=== PATIENT | male | born 1975 | race African-American/Black ===

== ENCOUNTER 2021-11-29 19:40 | Emergency (ER) | payer OTHER, SELFPAY ==
--- NOTE | ~2021-11-29 | CT_ITS ---
EXAMINATION: CT CHEST WITHOUT CONTRAST CT ABDOMEN AND PELVIS WITHOUT CONTRAST CLINICAL INFORMATION: Retropharyngeal air suspicion of lung trauma . COMPARISON: No pertinent prior studies are available for comparison. TECHNIQUE: Multidetector volumetric imaging was performed from the thoracic inlet through the pubic symphysis. Sagittal and coronal images were reformatted. This CT examination was performed using dose optimization techniques as appropriate, variously including the following: *Automated exposure control *Adjustment of mA and/or kV according to patient size (this includes techniques or standardized protocols for targeted exams where dose is matched to indication/reason for exam; i.e. extremities or head) *Use of iterative reconstruction technique DOSE: 1002 mGy-cm FINDINGS: -CHEST- LUNG: The lungs are clear without focal opacity or nodule. MEDIASTINUM: Gas propagates from the retropharyngeal soft tissues into the mediastinum to the level of the diaphragm and retrocrural soft tissues. There is a questionable small linear defect in the posterior wall of the trachea which may correspond to a tear, best seen on image 215/591 of series 7. Small volume pneumopericardium. Heart is normal in size. No intrathoracic free fluid. No adenopathy. Thyroid gland is unremarkable. PLEURA: No significant effusion. No pleural mass or thickening. CHEST WALL/AXILLA: No axillary adenopathy. Bilateral gynecomastia. -ABDOMEN/PELVIS- LIVER, GALLBLADDER, BILIARY TREE: The liver is normal in size, shape, and attenuation. No focal hepatic lesion or biliary ductal dilatation is present. The gallbladder is unremarkable with no evidence of radiopaque gallstones, gallbladder wall thickening, or obvious pericholecystic inflammatory changes. PANCREAS: Normal; no mass or surrounding fluid. SPLEEN: Normal size. No focal lesion. ADRENAL GLANDS: There is a 1.4 cm left adrenal nodule with attenuation value of -4 Hounsfield units, consistent with a lipid rich adrenal adenoma. No suspicious features. No recommended imaging follow up. Right adrenal gland is normal. KIDNEYS AND URETERS: The kidneys are normal in size, shape, and attenuation. No hydronephrosis, hydroureter, or calculi seen. No perinephric stranding. BLADDER: Unremarkable. GASTROINTESTINAL TRACT: Stomach, small bowel, and colon are normal in caliber. No bowel wall thickening or surrounding inflammatory changes. Appendix is normal. No intraperitoneal free fluid or free air. ABDOMINAL WALL: No significant hernia is appreciated. VASCULATURE: Aorta is normal in size. No significant calcific atherosclerotic disease. LYMPH NODES: No lymphadenopathy. . PELVIC VISCERA: The prostate and seminal vesicles are unremarkable. OSSEUS STRUCTURES: There is mild exaggeration of the thoracic kyphosis as result of mild anterior wedging of multiple lower thoracic vertebral bodies, likely developmental. No acute fractures. There is mild multilevel degenerative spondylosis in the thoracic spine. No rib fractures are identified. The sternum appears intact. Mild multilevel degenerative disc disease is also noted in the lumbar spine with more pronounced focal degenerative facet arthropathy in the lower lumbar spine at L4-L5 and L5-S1. 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 No acute fractures. CT/CT abdomen pelvis wo IV con IMPRESSION: 1. Pneumomediastinum propagates from the cervical soft tissues at the level of the diaphragm with trace associated pneumopericardium. It is most pronounced around the central airway including the trachea and mainstem bronchi. No definitive site of tracheobronchial injury or esophageal injury is identified, though a small focal longitudinal tear of the posterior aspect of the distal trachea is possible. No surrounding fluid collections. No appreciable pneumothorax. 2. Otherwise, no evidence of acute injury in the chest, abdomen, and pelvis.
--- NOTE | ~2021-11-29 | CT_ITS ---
EXAMINATION: CT cervical spine wo IV con, CT head/brain wo IV con, CT facial bones wo IV con INDICATION INFORMATION: Reason for Exam facial trauma COMPARISON: Trauma TECHNIQUE: Separate noncontrast CT examinations of the head, face, and cervical spine were performed. Coronal and sagittal images were created for each examination at the technologist workstation. This CT examination was performed using dose optimization techniques as appropriate, variously including the following: *Automated exposure control *Adjustment of mA and/or kV according to patient size (this includes techniques or standardized protocols for targeted exams where dose is matched to indication/reason for exam; i.e. extremities or head) *Use of iterative reconstruction technique DLP: 1608 mGy-cm FINDINGS: Head: No acute osseous or soft tissue abnormality. The mastoid air cells are clear. There is no evidence of acute intracranial hemorrhage or territorial infarction. No abnormal mass effect or midline shift is seen. Ruiz to white matter differentiation is well preserved. No extra-axial fluid collections are identified. No hydrocephalus. No significant volume loss. There is no abnormal attenuation within the brain parenchyma. Cavum vellum interpositum, a normal variant. Facial Bones: Chronic appearing left maxillofacial deformity, likely reflecting an old zygomaticomaxillary complex fracture as well as fracture of the inferolateral floor of the left orbit. Postsurgical material is noted along the left lateral orbital rim. Age-indeterminate fracture of the anterior left lamina papyracea and age-indeterminate nasal bone deformities. There is left perioribtal soft tissue swelling and mild left proptosis. The left globe appears intact. Minimal haziness of the left intraorbital fat. No retrobulbar hematoma. Scattered paranasal sinus fluid and mucosal thickening. Cervical spine: There is no evidence of acute cervical spine fracture. Vertebral bodies remain normal in height. Straightening of the upper cervical lordosis. Moderate multilevel cervical spondylosis. No prevertebral edema. Visualized portions of the lung apices are unremarkable. The thyroid gland is unremarkable. Soft tissue emphysema is noted in the superior mediastinum extending into the neck predominantly involving the prevertebral soft tissues. CT/CT cervical spine wo IV con IMPRESSION: 1. No acute intracranial abnormality. 2. No cervical spine fracture or traumatic malalignment. 3. Chronic appearing left facial deformity, likely reflecting a prior left zygomaticomaxillary complex fracture as well as fracture of the orbital floor. Age indeterminate fracture of the left anterior lamina papyracea and bilateral nasal bones. Given the presence of left periorbital soft tissue swelling, superimposed acute on chronic fracture would be difficult to exclude. Comparison with prior imaging if available would be helpful. The left medial rectus muscle approximates the left lamina papyracea fracture. Recommend correlation with extraocular movements to exclude entrapment. 4. Emphysema involving the superior mediastinum and neck, predominantly the prevertebral soft tissues. No source of air in the neck is identified. Consider further evaluation with noncontrast CT of the chest. Above impression was discussed with Candy Paris NP on 11/21/2021 at 9:05 PM
[2021-11-29 19:53] VITALS: BP 140/90; BP 142/79; PULSE 71; PULSE 90; RESP 16; TEMP 36.9; O2SAT 9; O2SAT 99; BMI 18.7
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
--- OUTSIDE RECORDS SUMMARY | 2021-11-29 21:45 | XMS_ITS | Continuity of Care Document ---
:1975 Author Organization [facility] Address [address] [place] [address]- Care Team Providers Name Role Phone Antonio SOTELO, Joaquim Primary Care Physician Unavailable Encounter [facility] Date(s): 08/15/20 - 09/14/[address] [id number] Allergies, Adverse Reactions, Alerts Substance Reaction Severity Status NKA Active Immunizations Given and Recorded Vaccine Date Status Refusal Reason tetanus/diphtheria/pertussis, acel(Tdap) 03/08/18 Given Medications acetaminophen-oxycodone 500 mg-5 mg oral capsule See Instructions, Scheduled / PRN, 15, 0, 0, 11/09/06 11:33:42, as needed for pain, 1 capsule By Mouth Every 6 hours, Print TEREZA Number, ADS OPPTHS Start Date: 11/09/06 Status: OrderedCrutches See Instructions, 1, 0, 0, 11/09/06 11:34:38, non-weightbearing, toe dislocation, ADS OPPTHS Start Date: 11/09/06 Status: Orderedibuprofen 600 mg oral tablet 600 mg, 1, tablet, By Mouth, Every 8 hours, # 30 tablet, Refills 0, Tot. Refills 0, Maintenance, 03/10/18 16:11:29 EST, Print Requisition Start Date: 03/10/18 Status: Ordered
--- OUTSIDE RECORDS SUMMARY | 2021-11-29 21:45 | XMS_ITS | Continuity of Care Document ---
:1975 Author Organization [facility] Address [address] [place] [address]- Care Team Providers Name Role Phone Joaquim Fabian Primary Care Physician Unavailable [id number] Date(s): 03/27/21 - 03/28/[address] [address]- Discharge Disposition: A-D/C Home Attending Physician: Saji TORRES, Cesilia Ramos Admitting Physician: Alex Dominguez MD Referring Physician: Debby TORRES, Puja Trent Allergies, Adverse Reactions, Alerts No Known Allergies Immunizations Given and Recorded Vaccine Date Status Refusal Reason tetanus/diphtheria/pertussis, acel(Tdap) 03/08/18 Given Medications Crutches See Instructions, 1, 0, 0, 11/09/06 11:34:38, non-weightbearing, toe dislocation, ADS OPPTHS Start Date: 11/09/06 Status: Ordereddiltiazem 180 mg/24 hours oral capsule, extended release 360 mg, CD Capsule, By Mouth, 03/28/21 9:25:00 EST Start Date: 03/28/21 Stop Date: 03/28/21 Status: CompleteddilTIAZem 360 mg/24 hours oral capsule, extended release 1 capsule = 360 mg, By Mouth, Daily, 0 Refills, Maintenance, 03/27/21 18:37:00 EST, Partial fill upon patient request if the prescription is for a schedule II opioid drug. Start Date: 03/27/21 Status: Orderedhydroxyzine pamoate = 25 mg, By Mouth, Daily at bedtime, PRN Sleep, 0 Refills, Maintenance, 03/27/21 18:45:00 EST, Partial fill upon patient request if the prescription is for a schedule II opioid drug. Start Date: 03/27/21 Status: Orderedlisinopril 20 mg oral tablet 20 mg, 1, tablet, By Mouth, Daily, Refills 0, Maintenance, 03/27/21 18:45:00 EST, Partial fill upon patient request if the prescription is for a schedule II opioid drug. Start Date: 03/27/21 Status: Ordered Results Orders for Microbiology Reports Name Date Blood Culture 03/27/21 Blood Culture #2 03/27/21 CSF Culture w/ Gram Smear 03/27/21 Microbiology Reports TEST:Blood Culture, Second Order STATUS:Unauthenticated BODY SITE: SOURCE:Blood COLLECTED DATE/TIME:03/27/21 2:15 AMBlood Culture, Second Order SPECIMEN DESCRIPTION : BLOOD LFA SPECIAL REQUESTS : NONE CULTURE : NO GROWTH AFTER 24 HOURS REPORT STATUS : PRELIMINARY REPORT TEST:Blood Culture STATUS:Unauthenticated BODY SITE: SOURCE:Blood COLLECTED DATE/TIME:03/27/21 2:00 AMBlood Culture SPECIMEN DESCRIPTION : BLOOD R AC SPECIAL REQUESTS : NONE CULTURE : NO GROWTH AFTER 24 HOURS REPORT STATUS : PRELIMINARY REPORT TEST:Spinal Fluid Culture STATUS:Unauthenticated BODY SITE: SOURCE:CEREBR COLLECTED DATE/TIME:03/27/21 12:27 AMSpinal Fluid Culture SPECIMEN DESCRIPTION : CEREBROSPINAL FLUID SPECIAL REQUESTS : NONE GRAM STAIN : NO ORGANISMS SEEN NO WBC'S SEEN CULTURE : NO GROWTH TO DATE REPORT STATUS : PRELIMINARY REPORT Radiology Reports Exam Date Time Procedure Performing Provider Status 03/27/21 8:31 AM Chest 2 Views Frontal and Lat Salma Andrade; Au th (Verified) Notes:(Chest 2 Views Frontal and Lat) Reason For Exam: FeverRESULT: Chest 2 Views Frontal and Lat Chest 2 Views Frontal and Lat INDICATION: Fever, question pneumonia COMPARISON: None. FINDINGS: LINES AND TUBES: None. LUNGS AND PLEURA: Low lung volumes. Clear lungs. Normal pulmonary vascularity. No pleural effusion. No pneumothorax. HEART, MEDIASTINUM AND RANI: Heart is normal in size. Normal upper mediastinal and hilar contour. BONES AND SOFT TISSUES: No acute abnormality. IMPRESSION: No evidence of pneumonia. I have personally reviewed the images and I agree with this report. WSN: [id number] Ordering Physician: Cesilia Lennon Dictated By: Bay Padilla DO Dictated Date/Time: 03/27/21 8:53 am Reviewed By: Jaret French MD Signed By: Jaret French MD Signed Date/Time: 03/27/21 8:58 am Transcribed By: ROBYN Transcribed Date/Time: 03/27/21 8:36 am Vital Signs Most recent to oldest 1 2 3 [Reference Range]: Height 191 cm 191 cm 191 cm (03/28/21 6:17 AM) (03/27/21 9:27 PM) (03/27/21 2:2 8 AM) Weight 100 kg 100 kg 100 kg (03/27/21 6:00 PM) (03/26/21 9:24 PM) (03/26/21 9:1 6 PM) Oxygen Saturation [94-100 99 % 96 % 100 % %] (03/28/21 6:17 AM) (03/27/21 9:27 PM) (03/27/21 6:0 0 PM) Pulse Rate [55-90 bpm] 62 bpm 52 bpm 51 bpm (03/28/21 10:03 AM) *L* *L* (03/28/21 6:17 AM) (03/27/21 9:27 PM) Body Mass Index 27.41 [18.5-24.99] *H* (03/26/21 9:16 PM) Blood Pressure 157/94 mm Hg 148/89 mm Hg 140/89 mm Hg [90-138/55-84 mm Hg] *H* *H* *H* (03/28/21 10:03 AM) (03/28/21 6:17 AM) (03/27/21 9: 27 PM) Respiratory Rate [16-30 18 br/min 20 br/min 22 br/mi n br/min] (03/28/21 6:17 AM) (03/27/21 9:27 PM) (03/27/21 6:0 0 PM) Temperature [96.8-100.4 99.0 DegF 98.5 DegF 97.7 Deg F DegF] (03/28/21 6:17 AM) (03/27/21 9:27 PM) (03/27/21 6:0 0 PM) Mode of Delivery (Oxygen) Room air Room air Room a ir (03/27/21 6:00 PM) (03/27/21 3:00 PM) (03/27/21 9:5 3 AM) Blood pressure sites Arm, right Arm, right Arm, right (03/27/21 6:00 PM) (03/27/21 2:00 PM) (03/27/21 9:5 3 AM) Temperature Route Oral Oral Oral (03/27/21 6:00 PM) (03/27/21 2:00 PM) (03/27/21 9:5 3 AM) Dry Weight 100 kg 100 kg (03/26/21 9:24 PM) (03/26/21 9:16 PM) Weight Obtained Via Standing scale Patient/family stated (03/27/21 6:00 PM) (03/26/21 9:16 PM) Dry Weight Obtained Via Patient/family stated (03/26/21 9:16 PM)
--- OUTSIDE RECORDS SUMMARY | 2021-11-29 21:45 | XMS_ITS | Continuity of Care Document ---
:1975 Author Organization [facility] Address [address] [place] [address]- Care Team Providers Name Role Phone Joaquim Fabian Primary Care Physician Unavailable Encounter [facility] Date(s): 03/01/21 - 03/01/[address] [address]- Discharge Disposition: A-D/C Walkout Attending Physician: Not on Staff, Attending MD Admitting Physician: Not on Staff, Admitting MD Referring Physician: Not on Staff, Referring MD Allergies, Adverse Reactions, Alerts Substance Reaction Severity [...] Print Requisition Start Date: 03/10/18 Status: Ordered Vital Signs Most recent to oldest [Reference Range]: 1 Oxygen Saturation [94-100 %] 98 % (03/01/21 4:30 AM) Pulse Rate [55-90 bpm] 91 bpm *H* (03/01/21 4:30 AM) Mode of Delivery (Oxygen) Room air (03/01/21 4:30 AM)
[2021-11-29 21:55] VITALS: BP 153/85; PULSE 61; RESP 16; TEMP 36.9; O2SAT 97
[2021-11-29] MEDS: Diphth,Pertus(ACell),Tet Adult 0.5 ML SYRINGE IM (21:58)
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
--- NOTE | 2021-11-29 22:49 | PC.NURSE ---
Trachea is midline, pt denies pain with breathing or talking. Respiration is even and nonlabored. Resting comfortably. [place] at bedside.
--- NOTE | 2021-11-29 23:03 | PC.NURSE ---
Call out to [facility] transfer line [phone]
[2021-11-29 23:28] LABS: COVID-19 Test Negative (Negative); IDNOW Serial# 16C4AD1C
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
--- NOTE | 2021-11-30 00:19 | PC.NURSE ---
call out to [facility] @[id number] for ALS transport [facility] will be here for [phone]
[2021-11-30] MEDS: ondansetron HCL 4 MG/2 ML VIAL IVPUSH (00:45)
[2021-11-30 00:46] VITALS: RESP 16
[2021-11-30] MEDS: Morphine Sulfate 4 MG/ML CARTRIDGE IVPUSH (00:46)
[2021-11-30 01:12] VITALS: BP 132/66; PULSE 58; RESP 12; O2SAT 96
== END 2021-11-30 03:30 | disposition short-term general hospital (02) ==
PROVIDERS: Nurse Practitioner Family; Emergency Provider Emergency Medicine Emergency Medical Services
DX: S06.0X0A Concussion without loss of consciousness, initial encounter (principal); S00.12XA Contusion of left eyelid and periocular area, initial encounter; Y35.93XA Legal intervention, means unspecified, suspect injured, initial encounter; J98.2 Interstitial emphysema; I31.9 Disease of pericardium, unspecified; Y93.9 Activity, unspecified; Y92.410 Unspecified street and highway as the place of occurrence of the external cause; Y99.9 Unspecified external cause status; Z20.822 Contact with and (suspected) exposure to COVID-19
CPT/HCPCS: 70450; 70486; 71250; 72125; 74176; 87635; 90471; 90715; 93005; 96374; 96375; 99285; J2270; J2405